=== PATIENT | male | born 1950 | race Caucasian/White ===

== ENCOUNTER → 2018-06-28 | Outpatient (CLI) | payer MEDICARE ==
[~2018-06-28] MED LIST: ALBU18HF PO; CETI10CA PO; EPI-PEN; FLUT16SP NS; LISI1TAB5 PO; VITAMIN C PO
== END | disposition home or self-care (01) ==
LOC: STAR 09:03
PROVIDERS: ATTEND Urology
DX: Z01.818 Encounter for other preprocedural examination (principal); D41.4 Neoplasm of uncertain behavior of bladder; I45.10 Unspecified right bundle-branch block; R94.31 Abnormal electrocardiogram [ECG] [EKG]
CPT/HCPCS: 93005

== ENCOUNTER 2018-07-02 07:48 | Day surgery (SDC) | payer MEDICARE ==
[~2018-07-02] VITALS: Ht 182.9 cm; Wt 96.7 kg
[2018-07-02] MEDS ORDERED: LACTATED RINGERS 1,000 ML IV SCH (08:20)
[2018-07-02 08:23] VITALS: BP 129/82
[2018-07-02] MEDS ORDERED: MEPERIDINE/PF 25MG/0.5ML IVPush PRN (08:30)
[2018-07-02] MEDS ORDERED: MIDAZOLAM 1 MG/ML, 2ML IV PRN (08:30)
[2018-07-02] MEDS ORDERED: OXYcodone 5 MG/5 ML ORAL.SOL UDC PO PRN (08:30)
[2018-07-02] MEDS ORDERED: ONDANSETRON 2MG/ML, 2ML IVPush PRN (08:30)
[2018-07-02] MEDS ORDERED: HYDROmorphone 1 MG/ML, 1ML IV PRN (08:30)
[2018-07-02] MEDS ORDERED: LABETALOL 5MG/ML, 20ML IV PRN (08:30)
[2018-07-02] MEDS ORDERED: PROPOFOL 10 MG/ML, 20ML ONE (09:41)
[2018-07-02] MEDS ORDERED: CEFAZOLIN 1,000 MG ONE (09:41)
[2018-07-02] MEDS ORDERED: DEXAMETHASONE 4 MG/ML, 5ML ONE (09:41)
[2018-07-02] MEDS ORDERED: LIDOCAINE PF 2%, 5ML ONE (09:41)
[2018-07-02] MEDS ORDERED: METOCLOPRAMIDE 5 MG/ML, 2ML ONE (09:41)
[2018-07-02] MEDS ORDERED: ROCURONIUM 10 MG/ML,10ML ONE (09:41)
[2018-07-02] MEDS ORDERED: ONDANSETRON 2MG/ML, 2ML ONE (09:41)
[2018-07-02] MEDS ORDERED: FENTANYL PF 100 MCG/2ML ONE ×2 (09:45→11:12)
[2018-07-02] MEDS ORDERED: MIDAZOLAM 1 MG/ML, 2ML ONE (09:45)
[2018-07-02] MEDS ORDERED: SUGAMMADEX 200 MG/2 ML IVPush ONE (10:01)
[2018-07-02] MEDS ORDERED: OXYcodone 5 MG/5 ML ORAL.SOL UDC ONE (11:12)
[2018-07-02] MEDS: FENTANYL PF 100 MCG/2ML IV PRN ×2 (11:15→11:20)
[2018-07-02] MEDS ORDERED: OPIUM/BELLADONNA SUPP.RECT 16.2-60 MG PR ONE (12:30)
== END 2018-07-02 14:35 | disposition home or self-care (01) ==
LOC: OUT 07:48
PROVIDERS: ATTEND Urology
DX: C67.9 Malignant neoplasm of bladder, unspecified (principal); D18.09 Hemangioma of other sites; I10 Essential (primary) hypertension; J45.909 Unspecified asthma, uncomplicated; Z72.89 Other problems related to lifestyle; Z88.8 Allergy status to other drugs, medicaments and biological substances
CPT/HCPCS: 52240; 88305; J0690; J1100; J2250; J2405; J2704; J2765; J3010; J7120